=== PATIENT | male | born 1970 | race Caucasian/White ===

== ENCOUNTER 2025-05-14 09:24 | Day surgery (SDC) | payer BC ==
[2025-05-14] MEDS: Lactated Ringers 1,000 ML IV SCH (10:02)
[2025-05-14] MEDS ORDERED: propofoL 500 MG/50 ML 50 ML ONE (10:22)
[2025-05-14] MEDS ORDERED: Propofol 200 MG/20 ML SDV ONE (11:16)
== END 2025-05-14 12:00 | disposition home or self-care (01) ==
LOC: MW.SDS 09:24 → MERGE 09:45 → MW.SDS 12:00
PROVIDERS: ATTEND Surgery
DX: Z12.11 Encounter for screening for malignant neoplasm of colon (principal); D12.3 Benign neoplasm of transverse colon; K31.89 Other diseases of stomach and duodenum; K29.51 Unspecified chronic gastritis with bleeding; K31.7 Polyp of stomach and duodenum; K20.0 Eosinophilic esophagitis; K21.9 Gastro-esophageal reflux disease without esophagitis; I10 Essential (primary) hypertension; Z79.899 Other long term (current) drug therapy; Z87.891 Personal history of nicotine dependence; Z86.0100 Personal history of colon polyps, unspecified
CPT/HCPCS: 43239; 45380; J2003; J2704; J7120; 00813